=== PATIENT | female | born 1995 | race Two or more races ===

== ENCOUNTER 2024-06-28 20:53 | Emergency (ER) | payer OTHER ==
[~2024-06-28] VITALS: Ht 162.6 cm; Wt 56.7 kg
[2024-06-28] MEDS ORDERED: ORPHENADRINE CITRATE 30 MG/ML AMPUL IM STA (23:20)
[2024-06-28] MEDS ORDERED: KETOROLAC TROMETHAMINE 30 MG VIAL IM STA (23:20)
[2024-06-29] MEDS ORDERED: KETO10TA2 PO (01:58)
== END 2024-06-29 02:13 ==
LOC: ER 20:55
DX: S69.82XA Other specified injuries of left wrist, hand and finger(s), initial encounter (principal); V89.2XXA Person injured in unspecified motor-vehicle accident, traffic, initial encounter; V49.88XA Car occupant (driver) (passenger) injured in other specified transport accidents, initial encounter; Y93.89 Activity, other specified; Y92.89 Other specified places as the place of occurrence of the external cause; Y99.8 Other external cause status; M79.602 Pain in left arm